=== PATIENT | female | born 1960 | race Caucasian/White ===

== ENCOUNTER 2021-05-13 14:12 | Inpatient (IN) ==
[2021-05-13 14:52] LABS: Basophils # (auto) 0.01 K/uL (0-0.2); Basophils % (auto) 0.2 %; Eosinophils # (auto) 0.05 K/uL (0-0.5); Eosinophils % (auto) 0.8 %; Hematocrit (blood only) 43.8 % (37-47); Hemoglobin 14.5 g/dL (12.0-16.0); Immature Granulocytes # (auto) 0.02 K/uL (0.00-0.02); Immature Granulocytes % (auto) 0.3 %; Lymphocytes % (auto) 32.9 %; Mean Corpuscular Hemoglobin 31.9 pg (25-34); Mean Corpuscular Hgb Conc 33.1 g/dL (32-36); Mean Corpuscular Volume 96.5 fL (80-100); Monocytes # (auto) 0.46 K/uL (0.11-0.59); Monocytes % (auto) 7.6 %; Neutrophils # (auto) 3.53 K/uL (1.4-6.5); Neutrophils % (auto) 58.2 %; Platelet Count 286 K/uL (130-400); RDW Coefficient of Variation 12.9 % (11.5-14.5); RDW Standard Deviation 45.5 fL (36.4-46.3); Red Blood Count 4.54 M/uL (4.2-5.4); White Blood Count 6.07 K/uL (4.8-10.8)
[2021-05-13 15:05] LABS: Partial Thromboplastin Ratio 0.9; Partial Thromboplastin Time 24.7 Seconds (21.0-31.0); Prothrombin Time 10.1 Seconds (9.0-12.0)
[2021-05-13 15:11] LABS: Alanine Aminotransferase 17 U/L (7-52); Albumin Globulin Ratio 1.8 (0.9-2); Albumin Level 4.6 gm/dl (3.4-5.0); Alkaline Phosphatase 56 U/L (34-104); Anion Gap 7 (3-11); Aspartate Aminotransferase 18 U/L (13-39); BUN Creatinine Ratio 12.7 (10-20); Bilirubin,Total 0.5 mg/dl (0.2-1.0); Blood Urea Nitrogen 9 mg/dl (6-23); Calcium 9.1 mg/dl (8.5-10.1); Carbon Dioxide 27 mmol/L (21-32); Chloride 104 mmol/L (98-107); Creatinine Clr Calc Pharmacy 91.7 ml/min; Est GFR (African American) 108.1 ml/min; Est GFR (Non-African American) 93.2 ml/min; Globulin 2.5 gm/dl (2.5-4.0); Glucose 89 mg/dl (70-99(Fasting)); Potassium 3.6 mmol/L (3.5-5.1); Sodium 138 mmol/L (136-145); Total Protein 7.1 gm/dl (6.0-8.3)
[2021-05-13 15:13] LABS: Troponin I < 0.03 ng/ml (0-0.04)
--- NOTE | 2021-05-13 17:05 | XRay Report ---
XR chest 1V portable CLINICAL HISTORY: Atypical chest pain TECHNIQUE: Single frontal radiograph of the chest was obtained. Comparison: None available at the time of this dictation. FINDINGS: No lines and tubes are seen. The cardiomediastinal silhouette is normal. The lungs are clear. No evid ence of pleural effusion or pneumothorax. IMPRESSION: No acute chest disease. ACT 112: Negative or not required by law. Electronically signed by: Lul Carter M.D. 05/13/2021 5:03 PM
--- NOTE | 2021-05-13 17:26 | Emergency Department Note ---
Impression & Plan Atypical chest pain ED Provider Note Provider: Raji Georges MD DATE OF SERVICE: 05/13/2021 CHIEF COMPLAINT: Chest pressure/burning HISTORY OF PRESENT ILLNESS: Patient is a 61-year-old female otherwise healthy presenting here today reporting the onset that woke her last night around 1:30 in the morning of some chest pressure and burning across the center of her upper chest. Patient states that this woke her up and radial little bit to the lower neck and jaw. Kept her up for unclear amount of time and went back to bed. Woke around 7 the morning and off symptoms again until later in the morning. Developed nonexertional burning and pressure again but not pain. Reports this did radiate to the bilateral arms with little bit of transient numbness in the right pinky reported. No other neurological deficits reported. No syncope or falls. Denies shortness of breath. Denies abdominal pain or nausea or vomiting. Did take aspirin earlier today. Denies history of cardiac disease her self talk to her doctors office and was referred here for further evaluation. REVIEW OF SYSTEMS: A total of 10 review of systems was obtained and negative except as stated above in the HPI. PAST MEDICAL HISTORY: As noted above MEDICATIONS: Reviewed home medications SOCIAL HISTORY: Lives at home, non-smoker PHYSICAL EXAM: GENERAL: alert and oriented in no acute distress on stretcher Head: normocephalic and atraumatic EYES: No injection, discharge or icterus. NECK: Trachea midline. ENT: Mucous membranes pink and moist. LUNGS: Airway patent. No retractions. Breath sounds clear with good air entry bilaterally. HEART: Regular rate and rhythm. No chest wall tenderness ABDOMEN: Soft and non-tender, without guarding or rebound. SKIN: Acyanotic, warm, dry, without rashes EXTREMITIES: Without swelling, tenderness or deformity NEUROLOGICAL: No focal deficits. No aphasia. No facial droop or slurred speech. EK bpm normal sinus rhythm. No acute ST segment elevation with some questionable V4 through V6 ST depression. QTC 426. No priors available. CONTINUOUS CARDIAC MONITORING: was ordered and showed a heart rate of 50s-60s bpm in normal sinus rhythm to sinus bradycardia Patient's laboratory studies and imaging reviewed. Differential includes Cardiac ischemia, aortic dissection, pulmonary embolism, pneumothorax, pneumonia, pericarditis, myocarditis, esophageal rupture, GERD, cholecystitis, pancreatitis, musculoskeletal, as well as other pathologies. IMPRESSION/MEDICAL DECISION MAKING: Patient without pain but a pressure and burning with some radiation to the arms earlier. Negative troponin. EKG without STEMI however question some lateral ST depression mild. Doubt this represents acute PE given lack of hypoxia or shortness of breath. Doubt aortic dissection. She is not significantly hypertensive. No other signs of stroke. No other infectious symptomatologies. Could be esophageal but the intermittent pain in the arms is somewhat odd. Does not seem consistent with shingles given the bilateral nature. Question if this is atypical presentation of cardiac disease in this 61-year-old female. Discussed with her and family at bedside evaluation. Discussed recommendation for the cardiac evaluation here in observation. She was in agreement. Received aspirin already today. Given a GI cocktail to see if this changed anything. Very minimal pressure at this point. Patient was under the plan for further observation and hospitalist was contacted. DIAGNOSIS: Atypical chest pain DISPOSITION: Hospitalist will evaluate Patient was agreeable with this plan. Past Med/Surg History Medical History (Updated 05/13/21 @ 18:18 by Reyna Whitney PA-C) GERD (gastroesophageal reflux disease) Thyroid nodule Surgical History (Updated 01/16/19 @ 08:21 by Jessi Valadez) History of eye surgery Cyst removal History of throat surgery polyp removal Family History (Updated 01/16/19 @ 08:22 by Jessi Valadez) Mother Lung cancer Bone cancer Other No family history of bleeding disorder Social History (Updated 01/16/19 @ 08:24 by Jessi Valadez) Smoking Status: Never smoker Second Hand Exposure: No; Hx Alcohol Use: No Hx Substance Use: No current occupational status: employed 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, 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 Feels Safe at Home: Yes Childhood Exposure to Second-Hand Smoke: No Allergies Allergies Allergy/AdvReac Type Severity Reaction Status Date / Time egg AdvReac Intermediate MIGRAINE Verified 05/13/21 16:57 HEADACHE Milk Containing Products AdvReac Intermediate MIGRAINE Verified 05/13/21 16:57 HEADACHE capsaicin [From Capzasin] AdvReac Rash Verified 05/13/21 17:55 gold Au 198 AdvReac rash Verified 05/13/21 17:55 menthol [From Capzasin] AdvReac Rash Verified 05/13/21 17:55 nickel AdvReac Skin Verified 05/13/21 17:55 Irritation Home Meds Home Medications Medication Instructions Recorded Confirmed melatonin 3 mg tablet 3 mg PO HS PRN 05/13/21 05/13/21 Results & Data (ED) Vital Signs Vital Signs - 24 hr 05/13/21 14:16 05/13/21 17:18 05/13/21 18:46 Temperature 36.7 C Temperature Source Temporal Artery Scan Pulse Rate 88 Pulse Rate [Apical] 55 L 60 Pulse Rhythm Regular Pulse Strength Normal Respiratory Rate 20 16 16 Respiratory Effort / Characteristics Non-Labored Spontaneous Respiratory Depth Normal Respiratory Pattern Regular Blood Pressure 159/96 H Blood Pressure [Left Arm] 111/65 139/85 Blood Pressure Mean 117 Blood Pressure Mean [Left Arm] 80 103 Blood Pressure Position Sitting Pulse Oximetry 99 99 99 Oxygen Delivery Method Room Air Room Air Room Air Sepsis Recent Fever Within 48 Hours No Sepsis New/Unexplained Change in Mental Status N/A Sepsis Action Taken by Nursing No Action Required Laboratory Data Result diagrams: 05/13/21 14:32 05/13/21 14:32 Lab Results 05/13/21 05/13/21 05/13/21 Range/Units 14:32 14:32 14:32 WBC 6.07 (4.8-10.8) K/uL RBC 4.54 (4.2-5.4) M/uL Hgb 14.5 (12.0-16.0) g/dL Hct 43.8 (37-47) % MCV 96.5 (80-100) fL MCH 31.9 (25-34) pg MCHC 33.1 (32-36) g/dL RDW Std Deviation 45.5 (36.4-46.3) fL RDW Coeff of Roger 12.9 (11.5-14.5) % Plt Count 286 (130-400) K/uL MPV 11.0 H (7.4-10.4) fL Immature Gran % (Auto) 0.3 % Neut % (Auto) 58.2 % Lymph % (Auto) 32.9 % Ness % (Auto) 7.6 % Eos % (Auto) 0.8 % Baso % (Auto) 0.2 % Neut # (Auto) 3.53 (1.4-6.5) K/uL Lymph # (Auto) 2.00 (1.2-3.4) K/uL Ness # (Auto) 0.46 (0.11-0.59) K/uL Eos # (Auto) 0.05 (0-0.5) K/uL Baso # (Auto) 0.01 (0-0.2) K/uL Immature Gran # (Auto) 0.02 (0.00-0.02) K/uL PT 10.1 (9.0-12.0) Seconds INR 1.0 (0.9-1.1) APTT 24.7 (21.0-31.0) Seconds PTT Ratio 0.9 Sodium 138 (136-145) mmol/L Potassium 3.6 (3.5-5.1) mmol/L Chloride 104 (98-107) mmol/L Carbon Dioxide 27 (21-32) mmol/L Anion Gap 7 (3-11) BUN 9 (6-23) mg/dl Creatinine 0.71 (0.6-1.2) mg/dl Est Cr Clr Drug Dosing 91.7 ml/min Est GFR ( Amer) 108.1 ml/min Est GFR (Non-Af Amer) 93.2 ml/min BUN/Creatinine Ratio 12.7 (10-20) Glucose 89 (70-99(Fasting)) mg/dl Calcium 9.1 (8.5-10.1) mg/dl Total Bilirubin 0.5 (0.2-1.0) mg/dl AST 18 (13-39) U/L ALT 17 (7-52) U/L Alkaline Phosphatase 56 (34-104) U/L Troponin I < 0.03 (0-0.04) ng/ml Total Protein 7.1 (6.0-8.3) gm/dl Albumin 4.6 (3.4-5.0) gm/dl Globulin 2.5 (2.5-4.0) gm/dl Albumin/Globulin Ratio 1.8 (0.9-2) Lipase (11-82) U/L 05/13/21 Range/Units 14:32 WBC (4.8-10.8) K/uL RBC (4.2-5.4) M/uL Hgb (12.0-16.0) g/dL Hct (37-47) % MCV (80-100) fL MCH (25-34) pg MCHC (32-36) g/dL RDW Std Deviation (36.4-46.3) fL RDW Coeff of Roger (11.5-14.5) % Plt Count (130-400) K/uL MPV (7.4-10.4) fL Immature Gran % (Auto) % Neut % (Auto) % Lymph % (Auto) % Ness % (Auto) % Eos % (Auto) % Baso % (Auto) % Neut # (Auto) (1.4-6.5) K/uL Lymph # (Auto) (1.2-3.4) K/uL Ness # (Auto) (0.11-0.59) K/uL Eos # (Auto) (0-0.5) K/uL Baso # (Auto) (0-0.2) K/uL Immature Gran # (Auto) (0.00-0.02) K/uL PT (9.0-12.0) Seconds INR (0.9-1.1) APTT (21.0-31.0) Seconds PTT Ratio Sodium (136-145) mmol/L Potassium (3.5-5.1) mmol/L Chloride (98-107) mmol/L Carbon Dioxide (21-32) mmol/L Anion Gap (3-11) BUN (6-23) mg/dl Creatinine (0.6-1.2) mg/dl Est Cr Clr Drug Dosing ml/min Est GFR ( Amer) ml/min Est GFR (Non-Af Amer) ml/min BUN/Creatinine Ratio (10-20) Glucose (70-99(Fasting)) mg/dl Calcium (8.5-10.1) mg/dl Total Bilirubin (0.2-1.0) mg/dl AST (13-39) U/L ALT (7-52) U/L Alkaline Phosphatase (34-104) U/L Troponin I (0-0.04) ng/ml Total Protein (6.0-8.3) gm/dl Albumin (3.4-5.0) gm/dl Globulin (2.5-4.0) gm/dl Albumin/Globulin Ratio (0.9-2) Lipase 18 (11-82) U/L Administered Medications Discontinued Medications Al Hydrox/Mg Hydrox/Simethicone (Gi Cocktail Ed Use) Confirm Administered Dose 1 dose PO .STZenkars-MED ONE Stop: 05/13/21 18:39 Last Admin: 05/13/21 18:42 Dose: 1 dose Documented by: [id number] Al Hydrox/Mg Hydrox/Simethicone 18 ml/ Lidocaine HCl 6 ml/ BARCODE IDENTIFIER 1 ea 0 ml PO ONE ONE Stop: 05/13/21 17:39 Last Admin: 05/13/21 18:42 Dose: Not Given Documented by: [id number] Imaging Data Radiologist's Impression: Chest X-Ray 05/13/21 16:17 XR chest 1V portable CLINICAL HISTORY: Atypical chest pain TECHNIQUE: Single frontal radiograph of the chest was obtained. Comparison: None available at the time of this dictation. FINDINGS: No lines and tubes are seen. The cardiomediastinal silhouette is normal. The lungs are clear. No evidence of pleural effusion or pneumothorax. IMPRESSION: No acute chest disease. ACT 112: Negative or not required by law. Electronically signed by: Lul Carter M.D. 05/13/2021 5:03 PM Discharge Plan Visit Data Chief Complaint: Cardiac Assessment Stated Complaint: PRESSURE AND TINGLING IN CHEST, LIGHTHEADED ED Provider: Raji Georges ED Midlevel Provider: Phil Britt Discharge Problem: Atypical chest pain Forms Stand Alone Forms: My [employer] Prescriptions Prescriptions: No Action melatonin 3 mg Tablet 3 mg PO HS PRN (Reason: Sleep) RF: 0 Referrals Referrals: Austin Turner MD [Primary Care Provider] -
[2021-05-13] MEDS ORDERED: ALUMINUM/MAGNESIUM SUSP 18 ML, LIDOCAINE VISCOUS 2% SOLN 6 ML, BARCODE IDENTIFIER 1 EA PO ONE (17:38)
--- NOTE | 2021-05-13 17:56 | History & Physical Report ---
Date of Service May 13, 2021 Assessment & Plan (1) Atypical chest pain: Plan: Symptoms atypical for cardiac etiology but initial EKG with non-specific ST segment changes in V4-V6. - Observe in PCU overnight - Trend troponin - EKG in AM and repeat prn for chest pain - Check ECHO - Consult cardiology - will make pt NPO after midnight (2) GERD (gastroesophageal reflux disease): Plan: Pt manages with lifestyle modification - current symptoms feel different than prior reflux. Plan: Pt seen and reviewed with collaborating physician, Dr. Carter. Plan of care discussed and as outlined above. Code Status: Full code DVT Prophylaxis: Loretta Whitney PA-C History of Present Illness Chief Complaint: Chest Discomfort Primary Care Provider: Austin Turner MD This is a 61 y/o female with a PMH of GERD who presented to the ED today with two episodes of chest discomfort and burning today. She reports that she woke up at 1:30 am today with chest burning and discomfort - "lasted a while" then she fell back asleep. Mostly in the substernal area - radiated up to jaw/base of tongue briefly with associated numbness in that area transiently. Recurrent chest burning and discomfort at 11 am today while at work. Discomfort radiated to bilateral arms briefly, transient numbness in the right arm. Discomfort has waxed and waned since it came back around 11. Much improved since 3 pm today but still with a "whisper" of discomfort at present. Has not noticed a rash in the area of discomfort. Also states that she doesn't feel right overall today. Notes a similar episode of discomfort about two weeks ago while lying in bed in the middle of the night that woke her up - describes as like "if someone laid a telephone book on my chest." It resolved without specific intervention. No associated diaphoresis. No personal or family hx of heart disease. Has had shingles previously (mild) and had the shingles vaccine (both formulations). No increase from baseline level of stress. No fevers, chills. Occasional dry cough but not unusual for her. Some very mild lightheadedness but no dizziness. Allergies Allergy/AdvReac Type Severity Reaction Status Date / Time egg AdvReac Intermediate MIGRAINE Verified 05/13/21 16:57 HEADACHE Milk Containing Products AdvReac Intermediate MIGRAINE Verified 05/13/21 16:57 HEADACHE capsaicin [From Capzasin] AdvReac Rash Verified 05/13/21 17:55 gold Au 198 AdvReac rash Verified 05/13/21 17:55 menthol [From Capzasin] AdvReac Rash Verified 05/13/21 17:55 nickel AdvReac Skin Verified 05/13/21 17:55 Irritation Home Medications Medication Instructions Recorded Confirmed Type melatonin 3 mg tablet 3 mg PO HS PRN 05/13/21 05/13/21 History Past Med/Surg History Medical History (Updated 05/13/21 @ 18:18 by Reyna Whitney PA-C) GERD (gastroesophageal reflux disease) Thyroid nodule Surgical History (Updated 01/16/19 @ 08:21 by Jessi iQiyi) History of eye surgery Cyst removal History of throat surgery polyp removal Family History (Updated 01/16/19 @ 08:22 by Jessi iQiyi) Mother Lung cancer Bone cancer Other No family history of bleeding disorder Social History (Updated 01/16/19 @ 08:24 by varinode) Smoking Status: Never smoker Second Hand Exposure: No; Hx Alcohol Use: No Hx Substance Use: No current occupational status: employed 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, 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 Feels Safe at Home: Yes Childhood Exposure to Second-Hand Smoke: No Review of Systems Review of Systems: All systems reviewed & are unremarkable except as noted in HPI & below Constitutional: no fever, no chills, no sweats and no fatigue Eyes: no diplopia Ear, Nose, Mouth, Throat: no nasal congestion and no sore throat Respiratory: + cough; no dyspnea and no wheezing Cardiovascular: as per Subjective / HPI; no palpitations, no syncope and no edema Gastrointestinal: no nausea, no vomiting, no dysphagia, no diarrhea/loose stools and no blood in stools Genitourinary: no dysuria and no hematuria Musculoskeletal: no back pain and no neck pain Integumentary: no rash and no yellowing of the skin Neurologic: + generalized weakness (this morning but only with chest disc omfort) and + headache(s); no localized weakness and no syncope Psychiatric: no depression and no anxiety Physical Exam Constitutional: well developed and well nourished; no acute distress Eyes: + anicteric sclerae Neck: trachea midline Respiratory: no respiratory distress and no labored breathing Auscultation: lungs clear to auscultation bilaterally; no rales, no rhonchi and no wheezes Cardiovascular: Rate/Rhythm: regular rate and regular rhythm Heart Sounds: no gallop, no murmur and no cardiac rub Vessels: dorsalis pedis pulses present and radial pulses present Extremities: no pedal edema Gastrointestinal (Abdomen): Inspection/Auscultation: normal bowel sounds; abdomen not distended Percussion/Palpation: abdomen soft; abdomen nontender Musculoskeletal: Head/Neck/Chest: normocephalic, head atraumatic and neck supple Skin: dry skin on the chest but no vesicles or erythema Neurologic: moves all extremities; no focal motor deficits Psychiatric: A+Ox3, euthymic affect Results & Data Results & Data ([facility]) Vital Signs (Past 12 Hours) Vital Signs Temp Pulse Pulse Resp BP BP Pulse Ox 05/13/21 17:18 55 L 16 111/65 99 05/13/21 14:16 36.7 C 88 20 159/96 H 99 Laboratory Results Laboratory Results - last 24 hr 05/13/21 05/13/21 05/13/21 14:32 14:32 14:32 WBC 6.07 RBC 4.54 Hgb 14.5 Hct 43.8 MCV 96.5 MCH 31.9 MCHC 33.1 RDW Std Deviation 45.5 RDW Coeff of Roger 12.9 Plt Count 286 MPV 11.0 H Immature Gran % (Auto) 0.3 Neut % (Auto) 58.2 Lymph % (Auto) 32.9 [place] % (Auto) 7.6 Eos % (Auto) 0.8 Baso % (Auto) 0.2 Neut # (Auto) 3.53 Lymph # (Auto) 2.00 [place] # (Auto) 0.46 Eos # (Auto) 0.05 Baso # (Auto) 0.01 Immature Gran # (Auto) 0.02 PT 10.1 INR 1.0 APTT 24.7 PTT Ratio 0.9 Sodium 138 Potassium 3.6 Chloride 104 Carbon Dioxide 27 Anion Gap 7 BUN 9 Creatinine 0.71 Est Cr Clr Drug Dosing 91.7 Est GFR ( Amer) 108.1 Est GFR (Non-Af Amer) 93.2 BUN/Creatinine Ratio 12.7 Glucose 89 Calcium 9.1 Total Bilirubin 0.5 AST 18 ALT 17 Alkaline Phosphatase 56 Troponin I < 0.03 Total Protein 7.1 Albumin 4.6 Globulin 2.5 Albumin/Globulin Ratio 1.8 Lipase 05/13/21 14:32 WBC RBC Hgb Hct MCV MCH MCHC RDW Std Deviation RDW Coeff of Roger Plt Count MPV Immature Gran % (Auto) Neut % (Auto) Lymph % (Auto) [place] % (Auto) Eos % (Auto) Baso % (Auto) Neut # (Auto) Lymph # (Auto) [place] # (Auto) Eos # (Auto) Baso # (Auto) Immature Gran # (Auto) PT INR APTT PTT Ratio Sodium Potassium Chloride Carbon Dioxide Anion Gap BUN Creatinine Est Cr Clr Drug Dosing Est GFR ( Amer) Est GFR (Non-Af Amer) BUN/Creatinine Ratio Glucose Calcium Total Bilirubin AST ALT Alkaline Phosphatase Troponin I Total Protein Albumin Globulin Albumin/Globulin Ratio Lipase 18 Diagnostic Findings Chest X-ray 05/13/21 - IMPRESSION: No acute chest disease. Supervising Physician Co-Signing Physician Notes Pt is a 61 y/o F with hx of Thyroid nodule, GERD admitted for Chest pain PE: NAD Lungs: CTA, no wheezing, or crackles Cardiac: normal S1/S2, no murmur Abd: ND, NT, soft MSK: no LE edema Psych: AAOx3, normal affect A/P: Chest pain: -VSS -EKG: ST depression on V3-V6, NSR -Due to Age, and EKG finding will trend the trop -initial trop is neg -admit to tele - will obtain Echo and cards consult Agree with A/P by Reyna Whitney PA-C
[2021-05-13] MEDS ORDERED: GI COCKTAIL ED USE PO ONE (18:38)
[2021-05-14] MEDS ORDERED: NITROGLYCERIN SL 0.4 MG/TAB TAB SL PRN (00:01)
[2021-05-14] MEDS ORDERED: MELATONIN 3 MG TAB PO PRN (00:01)
[2021-05-14] MEDS ORDERED: ACETAMINOPHEN 325 MG TAB PO PRN (00:01)
[2021-05-14 06:42] LABS: Chol HDL Ratio 2.9 (0-5); Cholesterol 193 mg/dl (0-200); HDL Cholesterol 67 mg/dl; LDL Cholesterol Calculated 113 mg/dl; Triglycerides 65 mg/dl (0-150); Troponin I < 0.03 ng/ml (0-0.04); VLDL Cholesterol 13 mg/dl (0-30)
[2021-05-14] MEDS ORDERED: NITROGLYCERIN SL 0.4 MG/TAB TAB ONE (09:53)
[2021-05-14] MEDS ORDERED: ASPIRIN 81 MG ECTAB PO SCH (11:15)
[2021-05-14 11:39] LABS: D Dimer < 190 ug/L FEU (0-500)
[2021-05-14] MEDS: ATORVASTATIN 20 MG TAB PO SCH (12:16)
[2021-05-14] MEDS: PANTOprazole 40 MG TAB PO SCH (12:16)
--- NOTE | 2021-05-14 12:45 | Cardiology Consultation ---
Date of Consultation May 14, 2021 Assessment & Plan (1) Atypical chest pain: (2) GERD (gastroesophageal reflux disease): (3) Equivocal stress echocardiogram: 61-year-old female presents with symptoms of on an off again chest pressure and "burning ". She has a long-standing history of GERD, however the symptoms have been relatively well controlled off of medical therapy recently, and the patient is very vigilant with regards to her diet which has not changed. EKG without acute changes x2, troponin negative x3. The patient was seen by the undersigned and underwent exercise stress echocardiogram supervised by the undersigned at which time the patient exercised just over 6 minutes on a standard [place] protocol. Baseline 1/10 intensity chest tightness/ burning noted at baseline which did not worsen with exercise. The patient's exercise EKG response was abnormal with 1.5- [address] segment depression in the inferior and lateral leads. Subtle ST elevation was noted in lead aVR. the resting left ventricular wall motion was normal on echocardiography, without focal new post exercise wall motion abnormalities, however acquisition of the post-stress images was technically difficult, and the first image was not obtained until 36 seconds into the post exercise recovery interval thus limiting the sensitivity for detecting ischemia. Given the patient's symptoms, which are not typical for past GERD symptoms, further cardiac evaluation recommended. At this time, will start low-dose aspirin, atorvastatin, and Protonix. Recommend proceeding with diagnostic cardiac catheterization. Due to scheduling limitations, will plan on proceeding with cardiac catheterization tomorrow. Patient's diet advanced for now, NPO after midnight, for tentative cardiac catheterization with Dr. Hackett 05/15/2021. History of Present Illness Attending Physician: Carmine Martinez MD History of Present Illness Jadyn Cifuentes is a 61 year old female seen in cardiology consultation per the request of Reyna Whitney PA-C For the evaluation of chest discomfort. The patient describes that 2 days ago on Wednesday night 130 morning she awoke abruptly with a sensation of chest pressure as if they telephone block was pressing on her chest, and associated burning sensation. She felt like a discomfort was radiating up through her neck into her draw. This kept her awake for quite a bit of time, but she subsequently did go back to sleep without difficulty. 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 on 05/13/2021 the symptoms returned prompting presentation to the emergency department. EKG performed on arrival yesterday revealed sinus rhythm with very minimal nonspecific repolarization changes in the lateral precordial leads. Troponin I has been undetectable x3 measurements. At the time my assessment with the patient still in the emergency department, room A9B , she felt subtle residual discomfort but overall had felt well. Her COVID-19 screen was negative. The patient describes herself as a classically trained [employer]. Twenty years ago she was diagnosed with gastroesophageal reflux disease with resultant vocal cord problems that affected her voice. This did not resolve with conservative therapy including treatment with ranitidine, and subsequently she underwent surgical intervention for removal of an acid related polyp to her vocal cords in [facility] in 2001. she notes having been treated intermittently with ranitidine and omeprazole in the meantime. She underwent a barium swallow in [address] [facility] that revealed a possible small polyp within the right-sided vallecula as well as moderate gastroesophageal reflux. She describes having followed with ENT and having narrowing os copy at around that time. She underwent an EGD within the [facility] in April,, with normal findings, pathology negative. Ongoing treatment with omeprazole recommended by Gastroenterology at that time per the EGD No which the patient has not been taking. The patient describes family history of tachycardia in her mother (perhaps SVT), no history of coronary heart disease with exception of a cousin. Allergies Allergy/AdvReac Type Severity Reaction Status Date / Time egg AdvReac Intermediate MIGRAINE Verified 05/13/21 16:57 HEADACHE Milk Containing Products AdvReac Intermediate MIGRAINE Verified 05/13/21 16:57 HEADACHE capsaicin [From Capzasin] AdvReac Rash Verified 05/13/21 17:55 gold Au 198 AdvReac rash Verified 05/13/21 17:55 menthol [From Capzasin] AdvReac Rash Verified 05/13/21 17:55 nickel AdvReac Skin Verified 05/13/21 17:55 Irritation Home Medications Medication Instructions Recorded Confirmed Type melatonin 3 mg tablet 3 mg PO HS PRN 05/13/21 05/13/21 History Patient History Medical History GERD (gastroesophageal reflux disease) Thyroid nodule Surgical History History of eye surgery Cyst removal History of throat surgery polyp removal Family History Mother Lung cancer Bone cancer Other No family history of bleeding disorder Social History Smoking Status: Never smoker Second Hand Exposure: No; Hx Alcohol Use: No Hx Substance Use: No Preferred Language: Danish Communication Ability: Effective 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: No Beliefs That Will Affect Care: None Current Living Situation: Spouse current occupational status: employed 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, 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 Feels Safe at Home: Yes Childhood Exposure to Second-Hand Smoke: No Assistive Devices: None Review of Systems Review of Systems: All systems reviewed & are unremarkable except as noted in HPI & below Physical Exam Constitutional: WD/WN, vitals as above Respiratory: normal respiratory effort, lungs clear to auscultation Gastrointestinal (Abdomen): normal bowel sounds, soft, nontender, no hepatosplenomegaly Neurologic: PERRL, EOMI, accommodation nl, no face palsy, no dysarthria Results & Data ([facility]) Vital Signs (Past 12 Hours) Vital Signs Temp Pulse Resp BP Pulse Ox 05/14/21 08:30 60 20 105/65 99 05/14/21 08:00 59 L 17 124/78 100 05/14/21 07:00 52 L 18 102/67 100 05/14/21 00:52 37.6 C H 59 L 18 111/61 96 Laboratory Results Cardiac Enzymes 05/13/21 05/14/21 05/14/21 Range/Units 14:32 00:40 06:04 AST 18 (13-39) U/L Troponin I < 0.03 < 0.03 < 0.03 (0-0.04) ng/ml Coagulation D-dimer screen negative at less than 190 micrograms per liter 05/13/21 Range/Units 14:32 PT 10.1 (9.0-12.0) Seconds APTT 24.7 (21.0-31.0) Seconds Lipids 05/14/21 Range/Units 06:04 Triglycerides 65 (0-150) mg/dl Cholesterol 193 (0-200) mg/dl HDL Cholesterol 67 mg/dl Cholesterol/HDL Ratio 2.9 (0-5) CBC 05/13/21 Range/Units 14:32 WBC 6.07 (4.8-10.8) K/uL RBC 4.54 (4.2-5.4) M/uL Hgb 14.5 (12.0-16.0) g/dL Hct 43.8 (37-47) % Plt Count 286 (130-400) K/uL Neut # (Auto) 3.53 (1.4-6.5) K/uL Lymph # (Auto) 2.00 (1.2-3.4) K/uL Grand # (Auto) 0.46 (0.11-0.59) K/uL Eos # (Auto) 0.05 (0-0.5) K/uL Baso # (Auto) 0.01 (0-0.2) K/uL Comprehensive Metabolic Panel 05/13/21 Range/Units 14:32 Sodium 138 (136-145) mmol/L Potassium 3.6 (3.5-5.1) mmol/L Chloride 104 (98-107) mmol/L Carbon Dioxide 27 (21-32) mmol/L BUN 9 (6-23) mg/dl Creatinine 0.71 (0.6-1.2) mg/dl Glucose 89 (70-99(Fasting)) mg/dl Calcium 9.1 (8.5-10.1) mg/dl AST 18 (13-39) U/L ALT 17 (7-52) U/L Alkaline Phosphatase 56 (34-104) U/L Total Protein 7.1 (6.0-8.3) gm/dl Albumin 4.6 (3.4-5.0) gm/dl Intake and Output 05/13/21 05/14/21 05/14/21 22:59 06:59 14:59 Intake Total 0 / 0 Balance 0 / 0 Intake: Oral 0 / 0 Other: Weight 79.2 kg Weight Measurement Method Built in [facility]
--- NOTE | 2021-05-14 19:00 | Hospitalist Progress Note ---
Date of Service May 14, 2021 Assessment & Plan (1) Atypical chest pain: Plan: Atypical chest pain No acute EKG changes Troponins negative ECHO normal left ventricle wall motion Cardiac stress test showed ST segment depression in inferior and lateral leads, ST elevation in aVR Appreciate cardiology input Plan for cardiac catheterization tomorrow Continue aspirin, statin (2) GERD (gastroesophageal reflux disease): Plan: Manages with lifestyle modification Continue PPI Plan: Code Status: Full code DVT Px: SCDs Admission and Anticipated Discharge Date Admission Date: May 14, 2021 Subjective Patient is seen and examined at bedside Chest pain much improved No new complaints Denies any shortness of breath, dizziness, nausea, abdominal pain Had stress test earlier today Plan for cardiac catheterization tomorrow Review of Systems Review of Systems: All systems reviewed & are unremarkable except as noted in Subjective Physical Exam Physical Exam: Physical Exam: Vitals signs as noted above General Appearance:Moderately built and nourished, no apparent distress Head: normocephalic, Atraumatic Eyes: normal inspection, EOMI Neck: supple, Trachea midline Respiratory/Chest: Normal breath sounds, CTA Cardiovascular: S1, S2, No murmur Abdomen/GI:Soft, Non tender, Bowel sounds present Extremities/Musculoskeletal:normal inspection, no edema Neurologic/Psych:AAOX3, grossly no focal neurological deficits Skin: normal color, warm Results & Data Results & Data ([facility]) Vital Signs (Past 12 Hours) Vital Signs Pulse Resp BP Pulse Ox 05/14/21 08:30 60 20 105/65 99 05/14/21 08:00 59 L 17 124/78 100 05/14/21 07:00 52 L 18 102/67 100 Laboratory Results Cardiac Enzymes 05/14/21 05/14/21 Range/Units 00:40 06:04 Troponin I < 0.03 < 0.03 (0-0.04) ng/ml
[2021-05-14] MEDS: SODIUM CHLORIDE 0.9% 1000ML 1,000 ML IV SCH (21:23)
--- NOTE | 2021-05-14 23:38 | Electrocardiogram Report ---
Test Reason : Blood Pressure : / mmHG Vent. Rate : 069 BPM Atrial Rate : 069 BPM P-R Int : 160 ms QRS Dur : 086 ms QT Int : 398 ms P-R-T Axes : 061 055 030 degrees QTc Int : 426 ms Normal sinus rhythm Nonspecific ST abnormality Abnormal ECG No previous ECGs available Confirmed by Peter Pedroza ([id number]) on 05/14/2021 11:38:15 PM Referred By: Confirmed By:Peter Pedroza
[2021-05-15 06:19] LABS: Hematocrit (blood only) 42.2 % (37-47); Mean Corpuscular Hemoglobin 32.4 pg (25-34); Mean Corpuscular Hgb Conc 33.2 g/dL (32-36); Mean Corpuscular Volume 97.7 fL (80-100); Mean Platelet Volume 10.5 fL (7.4-10.4); Platelet Count 249 K/uL (130-400); RDW Standard Deviation 46.7 fL (36.4-46.3); Red Blood Count 4.32 M/uL (4.2-5.4); White Blood Count 5.12 K/uL (4.8-10.8)
[2021-05-15 06:40] LABS: BUN Creatinine Ratio 21.9 (10-20); Calcium 8.3 mg/dl (8.5-10.1); Creatinine Clr Calc Pharmacy 102.6 ml/min; Est GFR (African American) 113.2 ml/min; Est GFR (Non-African American) 97.7 ml/min; Potassium 3.9 mmol/L (3.5-5.1)
[2021-05-15] MEDS ORDERED: ASPIRIN 81 MG CHEW PO ONE (07:00)
[2021-05-15] MEDS: PANTOprazole 40 MG TAB PO SCH (08:19)
[2021-05-15] MEDS: ATORVASTATIN 20 MG TAB PO SCH (08:19)
[2021-05-15] MEDS: SODIUM CHLORIDE 0.9% 1000ML 1,000 ML IV SCH (08:20)
[2021-05-15] MEDS ORDERED: ASPIRIN CHEW 324 MG ONE (09:39)
[2021-05-15] MEDS ORDERED: LIDOCAINE 1% LOCAL 20 ML VIAL ONE (10:22)
[2021-05-15] MEDS ORDERED: niCARdipine HCL INJ 2.5 MG/ML 10 ML AMP ONE (10:45)
[2021-05-15] MEDS ORDERED: MIDAZOLAM HCL 1 MG/ML 2ML VIAL ONE (10:45)
[2021-05-15] MEDS ORDERED: NITROGLYCERIN/D5W 100MCG/ML 20ML SYR ONE (10:45)
[2021-05-15] MEDS ORDERED: HEPARIN (PORCINE) 1000 UNIT/ML 10 ML (CATH LAB USE ONLY) ONE (10:45)
--- NOTE | 2021-05-15 10:54 | Pre Anesthesia Assessment ---
Date of Service May 15, 2021 Pre Sedation Assessment Vital Signs Temp Pulse Resp BP Pulse Ox Pulse Ox 05/15/21 08:23 36.7 C 73 17 141/79 H 99 05/15/21 05:49 61 14 116/78 99 05/15/21 03:52 66 14 114/78 99 05/15/21 00:14 73 13 110/65 96 05/15/21 00:01 94 Pre-Sedation Airway Assessment Smoking Status: Never smoker Notes The planned sedation has been discussed with the patient. Informed Consent was obtained. I have identified the patient, determined the appropriateness of sedation and have assessed the patient immediately prior to the procedure. All medicine(s) and interventions are by my order.
--- NOTE | 2021-05-15 11:21 | Post Anesthesia Assessment ---
Date of Service May 15, 2021 Post Sedation Assessment Vital Signs Temp Pulse Resp BP Pulse Ox Pulse Ox 05/15/21 08:23 36.7 C 73 17 141/79 H 99 05/15/21 05:49 61 14 116/78 99 05/15/21 03:52 66 14 114/78 99 05/15/21 00:14 73 13 110/65 96 05/15/21 00:01 94 Discharge Sedation Level of Care: Fast Track Phase II Post Sedation Plan On clinical assessment, the patient appears to have tolerated the sedation without complications. Patient is recovering as anticipated. Patient will continue to be monitored by nursing and may be discharged when sedation discharge criteria are met per below protocol. Upon Completions of procedure up to 15 minutes continue every 5 minute vital signs and the P.A.R. score; then discharge to a Phase I or Fast Track to Phase II per the following guidelines: * Discharge Patient to appropriate Phase II area if PAR is 8 or greater or return to pre- procedure baseline. The post - procedure orders will be as directed. * If PAR score is less than 8 or not return to pre-procedure baseline then patient will follow Phase I monitoring till PAR is reached for Phase II. The Phase I may be done in procedure room or may call to secure a Phase I area. * If naloxone or flumazenil are used for reversal, hold in Phase I for continued monitoring from when last reversal dose was given for a minimum of 60 minutes or longer pending the nurse and/or physician discretion of patient condition before discharge to Phase II. Please call the Sedation Physician to re-evaluate and complete post-note for discharge to Phase II area. Do NOT discharge from procedure sedation or Phase 1 until post- sedation evaluation note is complete by procedure /sedation MD Sedation Discharge Instructions to be given to the patient at discharge to home.
--- NOTE | 2021-05-15 11:28 | Cardiac Catheterization ---
Date of Service May 15, 2021 Cardiac Cath Report Cardiac Cath Report Procedure: 1. Coronary angiography History: This is a 61-year-old female who presented with chest pain and had an abnormal exercise stress echocardiogram Procedure summary: After informed consent was obtained patient was taken to the cardiac catheterization lab and prepped and draped in the usual manner. Access was obtained using a retrograde Salinger technique from the right radial artery. Preformed 5 Danish diagnostic catheters were utilized for the coronary angiograms. Following the procedure the patient was returned to the holding area the Engineering Test Specialist in stable condition. ACC data: Start time 9:36 AM End time 10:01 AM Opening aortic pressure 96/68 Closing aortic pressure 109/79 LV pressurevalve not crossed Sedation 1 mg intravenous Versed IV fluid 100 cc normal saline Contrast 137 cc Visipaque Fluoroscopy time 10.3 minutes Radiation 2119 mGy DAP 231.36 Espinoza per centimeter squared Right dominant system AUC score 7 Coronary angiography: Selective injections into the left coronary artery revealed the left main trunk to be widely patent. There is a large ramus branch from the left main trunk which is widely patent. The left circumflex artery consists principally of a large lateral marginal branch. The left circumflex artery is smooth in appearance widely patent and within normal limits. The LAD gives off a high first septal filleter and and a distal medium size diagonal branch. The LAD continues around the apex of the heart. The LAD system is widely patent and within normal limits. The right coronary artery is dominant. The right coronary artery is smooth in appearance widely patent and within normal limits. Summary: Widely patent and normal coronary arteries Recommendations: Follow-up with primary care.
[2021-05-15] MEDS ORDERED: ASPIRIN 325 MG ECTAB PO ONE (13:59)
--- NOTE | 2021-05-15 15:08 | Discharge Summary ---
Date of Service May 15, 2021 Admission HPI Per Admitting Provider This is a 61 y/o female with a PMH of GERD who presented to the ED today with two episodes of chest discomfort and burning today. She reports that she woke up at 1:30 am today with chest burning and discomfort - "lasted a while" then she fell back asleep. Mostly in the substernal area - radiated up to jaw/base of tongue briefly with associated numbness in that area transiently. Recurrent chest burning and discomfort at 11 am today while at work. Discomfort radiated to bilateral arms briefly, transient numbness in the right arm. Discomfort has waxed and waned since it came back around 11. Much improved since 3 pm today but still with a "whisper" of discomfort at present. Has not noticed a rash in the area of discomfort. Also states that she doesn't feel right overall today. Notes a similar episode of discomfort about two weeks ago while lying in bed in the middle of the night that woke her up - describes as like "if someone laid a telephone book on my chest." It resolved without specific intervention. No associated diaphoresis. No personal or family hx of heart disease. Has had shingles previously (mild) and had the shingles vaccine (both formulations). No increase from baseline level of stress. No fevers, chills. Occasional dry cough but not unusual for her. Some very mild lightheadedness but no dizziness. Admission Exam Per Admitting Provider Constitutional: well developed and well nourished; no acute distress Eyes: + anicteric sclerae Neck: trachea midline Respiratory: no respiratory distress and no labored breathing Auscultation: lungs clear to auscultation bilaterally; no rales, no rhonchi and no wheezes Cardiovascular: Rate/Rhythm: regular rate and regular rhythm Heart Sounds: no gallop, no murmur and no cardiac rub Vessels: dorsalis pedis pulses present and radial pulses present Extremities: no pedal edema Gastrointestinal (Abdomen): Inspection/Auscultation: normal bowel sounds; abdomen not distended Percussion/Palpation: abdomen soft; abdomen nontender Musculoskeletal: Head/Neck/Chest: normocephalic, head atraumatic and neck supple Skin: dry skin on the chest but no vesicles or erythema Neurologic: moves all extremities; no focal motor deficits Psychiatric: A+Ox3, euthymic affect Principal Diagnosis chest pain Discharge Exam Gen: WD/WN, NAD, sitting in bed, A&Ox3 HEENT: Normocephalic, atraumatic, conjunctivae moist, sclerae anicteric, mucous membranes moist Lung: Clear to Auscultation bilaterally, no wheezes/rales/rhonchi Heart: Regular rate, regular rhythm, no murmurs, rubs, or gallops Abdomen: Soft, NT, ND +BS x 4 Extremities: R wrist guard in place, no bleeding. No edema Skin: Warm, no rash Discharge Data Allergies Allergy/AdvReac Type Severity Reaction Status Date / Time egg AdvReac Intermediate MIGRAINE Verified 05/13/21 16:57 HEADACHE Milk Containing Products AdvReac Intermediate MIGRAINE Verified 05/13/21 16:57 HEADACHE capsaicin [From Capzasin] AdvReac Rash Verified 05/13/21 17:55 gold Au 198 AdvReac rash Verified 05/13/21 17:55 menthol [From Capzasin] AdvReac Rash Verified 05/13/21 17:55 nickel AdvReac Skin Verified 05/13/21 17:55 Irritation Consultations 05/13/21 17:49 ED Decision to Admit Stat 05/14/21 00:01 Consult Cardiology Routine Procedures Performed Operation Date: 05/15/21 13:00 Actual Procedures p Cath, Coronaries ONLY (no LV) - Rene Hackett DO s Cineradiography w/Routine Exam - Rene Hackett DO Ordered Studies 05/15/21 06:37 CL Cath Imgs for PACS use only Routine CL Cath Imgs for PACS use only Stat Hospital Course (1) Atypical chest pain: (2) Equivocal stress echocardiogram: (3) Normal coronary arteries: (4) GERD (gastroesophageal reflux disease): This is a 61 y/o female with a PMH of GERD who presented to the ED today with two episodes of chest discomfort and burning today. Initial ECG without acute changes and troponin negative x 3. Resting echo showed normal left ventricle wall motion. Cardiac stress test showed ST segment depression in inferior and lateral leads and ST elevation in aVR so diagnostic cardiac catheterization was performed by Dr. Hackett on 05/15/21 which revealed normal coronary arteries. No need to discharge on aspirin or statin therapy. Recommended to continue PPI for GERD symptoms and follow up with primary care as scheduled. Patient asymptomatic and hemodynamically stable at time of discharge home. Total Time Total Time Spent Total Time Spent (In Minutes): 40 Discharge Plan Discharge Items Patient Disposition: Home - Self-Care Reason For Visit: CHEST PAIN Discharge Diagnosis: Normal coronaries Activity: Per Instructions section Non-emergency contact: Primary Care Provider Call non-emergency contact if: you have any medication questions, your symptoms worsen, your pain is not controlled, your pain is worsening, your pain is unusual for you, your pain is concerning for you, you have a fever, your temperature is above 101.5, your wound has increased redness, your wound has increased drainage and your wound pain has increased Follow-up/Referrals: Austin Turner MD [Primary Care Provider] - (Date & Time 05/21/2021 11:00 AM Provider Austin Turner MD Department Family [facility] ) Diet: Regular Addtl Attending Provider Instructions: ACTIVITY RECOMMENDATIONS: Excess manipulation of the wrist should be avoided for the next 24-48 hours. * No lifting over 2 pounds (approximately a 1/2 gallon of milk) with the utilized arm for 24 hours. * No strenuous activity such as bowling or tennis for 3 days. * Keep the site of the procedure covered with a bandage for 24 hours. *You may shower the day after the procedure. Do not take a tub bath or submerge the puncture site in water for the next 3 days. *Do not operate any motorized equipment for 3 days. SPECIAL CARE INSTRUCTIONS: The site may be slightly bruised and sore following your procedure. Should any of the following occur, contact the Dr. who performed your procedure. 1. Redness/inflammation, swelling, chills, or fever, or colored drainage at procedure site within 3-7 days after your procedure. 2. Coldness, discoloration, ongoing numbness, severe pain, or swelling. Expect mild tingling of hand and tenderness at the puncture site for up to three days. If this persists beyond three days, or other symptoms develop, notify the Dr. who performed your procedure. BLEEDING: If the procedure site on your wrist begins to bleed, do not panic 1. Place 1 or 2 fingers firmly just slightly above the insertion site to stop t he bleeding. You may be able to feel your pulse as you hold pressure. 2. Lift your finger after 5 minutes to see if the bleeding has stopped. 3. Once the bleeding has stopped, gently wipe the wrist area clean with a bandage. * If the bleeding from your wrist does not stop after 10 minutes, or if there is a large amount of bleeding or spurting, call 911 (do not drive yourself to the hospital). SKIN IRRITATION: * You may experience some redness and/or swelling in the area where radiation was administered. If any skin irritation occurs, please contact your family physician. FOLLOW UP VISIT: Keep any scheduled doctor appointments. Addtl Medical Clerical Assistant Provider Instructions: You were admitted for chest pain. Cardiac catheterization today revealed normal coronary arteries. No need for ongoing aspirin or statin therapy. Recommended that you continue pantoprazole 40mg daily for GERD. MEDICATION CHANGES: Pantoprazole 40mg daily RECOMMENDATIONS FOR FOLLOW-UP: Hospital follow-up with Dr. Turner 05/21/2021 at 11:00 AM OTHER INSTRUCTIONS: Seek medical attention if you have: * temperature above 101 * chest pain or trouble breathing * abdominal pain, nausea, vomiting * diarrhea, dark stools or bloody stools * any unanswered questions or concerns Call 911 if symptoms are severe. Please take good care of yourself. Call if you have any questions or problems. You can reach a [facility] hospitalist on duty at [facility] 24 hours a day by calling [phone]. Pending Studies at Discharge: No Stand-Alone Forms: My [facility], Smoking Cessation Medications and DC Order Prescriptions: New pantoprazole 40 mg Tablet,Delayed Release (Dr/Ec) 40 mg PO QAM Qty: 30 RF: 0 Continued melatonin 3 mg Tablet 3 mg PO HS PRN (Reason: Sleep) RF: 0 Discharge Orders: Discharge Order (Routine); Ordered 05/15/21 Ordered By: Rene Hackett Admission Data Admit Date/Time: 05/14/21 12:59 Attending Provider: Carmine Martinez Admit Provider: Carlton Carter Primary Care Provider: Austin Turner Other Providers: Rene Hackett ; Sheyla Loving Supervising Physician Co-Signing Physician Notes Patient is seen and examined after having cardiac catheterization earlier today. Doing well post procedure. Denies any chest pain, shortness of breath, dizziness, nausea, abdominal pain. Cardiac catheterization showed normal coronary arteries. On exam patient is moderately built and nourished, no apparent distress, normocephalic atraumatic, EOMI, normal breath sounds, clear to auscultation, S1-S2, no murmur, no pedal edema, abdomen soft, nontender, normal bowel sounds, alert, awake, oriented, grossly no focal deficits. Patient is planned to be discharged today. Atypical chest pain likely secondary to GERD. DD: Esophagitis, ulcer disease. Started on PPI. Advised to get EGD as outpatient. Lifestyle changes encouraged. I personally reviewed the record. Patient is interviewed and examined at bedside. Patient's care is coordinated with Sheyla Loving PA-C. Please refer to the documentation above for details of patient's presentation and for discussion of other issues.
--- NOTE | 2021-05-16 06:25 | Electrocardiogram Report ---
Test Reason : Blood Pressure : / mmHG Vent. Rate : 078 BPM Atrial Rate : 078 BPM P-R Int : 166 ms QRS Dur : 086 ms QT Int : 398 ms P-R-T Axes : 056 041 038 degrees QTc Int : 453 ms Normal sinus rhythm Nonspecific ST abnormality Abnormal ECG When compared with ECG of 13-MAY-2021 14:24, No significant change was found Confirmed by Peter Pedroza ([id number]) on 05/16/2021 6:24:35 AM Referred By: REFERRED SELF Confirmed By:Peter Pedroza
== END 2021-05-15 21:00 | disposition home or self-care (01) | DRG 287 ==
LOC: ED 14:12 → SUATTDRO 18:01 → INTOOBSV 18:01 → EDINP 18:01
PROC: CLB.CCO (2021-05-15 13:00)